=== PATIENT | male | born 1990 | race Caucasian/White ===

== ENCOUNTER 2022-01-12 03:27 | Emergency (ER) | payer OTHER ==
[~2022-01-12] VITALS: Ht 170.2 cm; Wt 68.9 kg
[2022-01-12 03:30] VITALS: BP 129/95
--- NOTE | 2022-01-12 03:30 | NUR ---
[id number]. FOR MEDICAL CLEARANCE FOR BOOKING. C/O ANXIETY. TOLERATING R/A WELL WITH NO RESP DISTRESS.
--- NOTE | 2022-01-12 03:51 | NUR ---
DR. GARCIA AT PT'S BEDSIDE
[2022-01-12] MEDS ORDERED: diphenhydrAMINE HCL 25 MG CAPSULE ONE (03:58)
[2022-01-12] MEDS ORDERED: diphenhydrAMINE HCL 25 MG CAPSULE PO ONE (04:00)
--- NOTE | 2022-01-12 04:04 | NUR ---
Patient discharged to [employer] custody in stable condition. Written and verbal after care instructions given. Patient verbalizes understanding of instruction.
--- NOTE | 2022-01-12 04:05 | NUR ---
PT IS MEDICALLY CLEARED FOR BOOKING AND RELEASED UNDER THE CARE OF 2 [employer] OFFICERS. PT IS IN STABLE CONDITION. AMBULATORY ON STEADY GAIT AND LEFT ON HANDCUFF
== END 2022-01-12 04:07 | disposition home or self-care (01) ==
LOC: ER 03:36
DX: F41.9 Anxiety disorder, unspecified (principal); J45.909 Unspecified asthma, uncomplicated
CPT/HCPCS: 99283; Q0163